=== PATIENT | male | born 1975 | race Caucasian/White ===

== ENCOUNTER → 2018-02-21 | Outpatient (CLI) | payer OTHER | LOC: HYPER 06:43 | DX: T81.89XA Other complications of procedures, not elsewhere classified, initial encounter (principal); A63.0 Anogenital (venereal) warts; B17.11 Acute hepatitis C with hepatic coma; Z79.52 Long term (current) use of systemic steroids; Y92.89 Other specified places as the place of occurrence of the external cause; Y83.8 Other surgical procedures as the cause of abnormal reaction of the patient, or of later complication, without mention of misadventure at the time of the procedure ==